=== PATIENT | female | born 1950 | race Caucasian/White ===

== ENCOUNTER 2016-10-25 20:26 | Emergency (ER) | payer MEDICARE, OTHER ==
[2016-10-25] MEDS ORDERED: FENTANYL CITRATE INJ/PF 100 MCG/2 ML AMPUL IV ONE (21:07)
[2016-10-25] MEDS ORDERED: KETOROLAC TROMETHAMINE INJ/PF 30 MG/1 ML SDV IV ONE (21:07)
--- NOTE | 2016-10-25 21:10 | ER Document Report ---
ED General - General Chief Complaint: Fall Injury Stated Complaint: FALL/RIB PAIN Time Seen by Provider: 10/25/16 20:39 Notes: Patient is a 66 year old female with a past medical history who presents after she had a mechanical slip and fall in her bathroom just prior to arrival. Patient states that she slipped over a pool of water striking her left lower ribs on a bathtub. She did not hit her head or neck. However states that since hitting her ribs she has had a constant, severe, throbbing pain to the lower left-sided ribs. Nothing improves her pain. States any movement or coughing worsens the pain. No history of similar injury in the past. She denies any injury or concerns beyond the left rib discomfort. No pain, gross hematuria, chest pain or shortness of breath. She has not seen her primary doctor regarding today's concerns. Past Medical History - General Information source: Patient - Social History Smoking Status: Never Smoker Frequency of alcohol use: None Drug Abuse: None Lives with: Spouse/Significant other Family History: Reviewed & Not Pertinent Review of Systems - Review of Systems Notes: Constitutional: Negative for fever. Eyes: Negative for visual changes. ENT: Negative for facial injury Cardiovascular: Negative for chest injury. Respiratory: Negative for shortness of breath. Gastrointestinal: Negative for abdominal injury. Genitourinary: Negative for genital injury Musculoskeletal: Positive for left rib injury Skin: Negative for laceration/abrasions. Neurological: Negative for head injury. Physical Exam - Vital signs Vitals: Temp Pulse Resp BP Pulse Ox 98.2 F 73 20 139/72 H 95 10/25/16 23:25 10/25/16 23:25 10/25/16 23:25 10/25/16 23:25 10/25/16 23:25 Interpretation: Normal Notes: PHYSICAL EXAMINATION: GENERAL: Well-appearing, no acute distress. HEAD: Atraumatic, normocephalic. EYES: Pupils equal round and reactive to light, extraocular movements intact, sclera anicteric, conjunctiva are normal. ENT: nares patent, no oral pharyngeal trauma. No hemotympanum, no Vegas's sign , no raccoon eyes. NECK: No midline cervical spine tenderness. Patient able to move their head to 45 bilaterally without any discomfort. LUNGS: Breath sounds clear to auscultation bilaterally and equal. No wheezes rales or rhonchi. HEART: Regular rate and rhythm without murmurs. CHEST WALL: Ecchymosis over the left lower ribs. ABDOMEN: Soft, nontender, normoactive bowel sounds. No guarding, no rebound. No seatbelt sign. EXTREMITIES: Normal range of motion, no pitting or edema. No long bone deformities. BACK: No midline spinal tenderness, step-offs, or deformities. NEUROLOGICAL: Face symmetric. Tongue protrudes midline. Extraocular motions intact. Pupils are 2 mm and equally reactive. Normal speech, normal gait. 5 out of 5 strength in both the distal and proximal upper and lower extremities bilaterally. Sensation is grossly intact throughout. Finger to nose testing normal. Pronator drift normal. PSYCH: Normal mood, normal affect. SKIN: Warm, Dry, normal turgor, no rashes or lesions noted. Course - Re-evaluation Re-evalutation: 10/25/16 21:08 Presentation of a well patient in no acute distress, vitals within normal limits after a fall onto her left ribs. No focal neurologic deficits on exam, no evidence of basilar skull fracture on exam without evidence of hemotympanum, raccoon eyes, or periauricular hematoma. No papilledema. Patient is not on anticoagulation. GCS is 15. No loss of consciousness. No episodes of vomiting. She does not think she hit her head and has no evidence of head trauma. Patient also evaluated by nexus criteria and found to be negative. No clinical evidence to suggest increased risk of cervical spine fracture. No indication for further imaging of the cervical spine. Patient has no focal deformities or limited range of motion in any joint space to indicate need for extremity imaging. Does have focal bruising over the left lower ribs and I suspect that she likely has either bruised intercostal rib muscles or she has sustained rib fractures. She is not hypoventilating and is otherwise well in appearance without any additional injury. I will obtain an x-ray, provide pain control, I do not believe any labs are indicated. Patient is clear that today she did not syncopized or have lightheadedness prior to the fall and that she slipped on an area of water on the floor and struck her ribs on the bathtub. 10/25/16 23:07 X-ray demonstrates left seventh and eighth rib fractures with a small associated pleural effusion without evidence of pneumothorax. Patient remains with vitals within normal limits, able to take clear deep breath. She has no focal abdominal tenderness, and has urinated here in the emergency department without gross hematuria to indicate a need for CT imaging. At this time will discharge with return precautions and follow-up recommendations. Verbal discharge instructions given a the bedside and opportunity for questions given. Medication warnings reviewed. Patient is in agreement with this plan and has verbalized understanding of return precautions and the need for primary care follow-up in the next 24-72 hours. - Vital Signs Vital signs: Temp Pulse Resp BP Pulse Ox 98.2 F 73 20 139/72 H 95 10/25/16 23:25 10/25/16 23:25 10/25/16 23:25 10/25/16 23:25 10/25/16 23:25 - Diagnostic Test Radiology reviewed: Image reviewed, Reports reviewed Radiology results interpreted by me: 10/26/16 03:32 Chest x-ray: Left eighth rib fracture Discharge - Discharge Clinical Impression: Fracture of rib of left side Qualifiers: Encounter type: initial encounter Rib fracture type: multiple ribs Fracture type: closed Qualified Code(s): S22.42XA - Multiple fractures of ribs, left side , initial encounter for closed fracture Condition: Good Disposition: HOME, SELF-CARE Additional Instructions: Your chest wall pain is due to a fracture of two of your ribs. This pain can last for up to 6 weeks. It is very important that you continue to take purposeful deep breaths. For your pain: Take ibuprofen 600 mg and acetaminophen 1000 mg every 6 hours together as needed for pain. If this does not control your pain you may take 15 mg of oral morphine every 4 hours as needed. There is a product sold over-the -counter called "Aspercreme with lidocaine" that you can also apply topically to the painful area. Please be very careful about using the oral morphine and only use this for severe pain. Please follow-up with your primary care doctor in the next 2-3 days. Return to the emergency department immediately if you develop worsening shortness of breath, increased pain, begin coughing blood, pass out, or have any other symptoms that are worrisome to you. Prescriptions: Morphine Sulfate [Morphine Ir 15 mg Tablet] 15 mg PO Q4HP PRN #12 tablet PRN Reason:
[2016-10-25] MEDS ORDERED: LIDOCAINE 5% (700 MG) TRANSDERMAL ADH..PATCH TP SCH (21:15)
--- NOTE | 2016-10-25 22:45 | RADIOLOGY REPORT (SQ) ---
EXAM DESCRIPTION: CHEST PA/LAT COMPLETED DATE/TIME: 10/25/2016 10:36 pm REASON FOR STUDY: fall, left rib pain COMPARISON: None. EXAM PARAMETERS: NUMBER OF VIEWS: two views TECHNIQUE: Digital Frontal and Lateral radiographic views of the chest acquired. RADIATION DOSE: NA LIMITATIONS: none FINDINGS: LUNGS AND PLEURA: There is pleural thickening in the left base possibly small left effusio n. MEDIASTINUM AND HILAR STRUCTURES: No masses or contour abnormalities. HEART AND VASCULAR STRUCTURES: Heart normal size. No evidence for failure. BONES: Probable fractures of the 8th and 9th lateral left ribs. HARDWARE: None in the chest. OTHER: No other significant finding. IMPRESSION: Small left effusion and/or pleural thickening. Probable fractures of the 8th and 9th le ft lateral ribs. TECHNICAL DOCUMENTATION: JOB ID: [id number] [employer]- All Rights Reserved
[2016-10-25] MEDS ORDERED: HYDROCODONE/ACETAMINOPHEN 5-325 MG 6 TAB/DSPK PO PRN (23:07)
[2016-10-25 23:40] VITALS: BP 139/72
== END 2016-10-25 23:36 | disposition home or self-care (01) ==
LOC: ER 20:26
DX: S22.42XA Multiple fractures of ribs, left side, initial encounter for closed fracture (principal); R07.81 Pleurodynia; W01.198A Fall on same level from slipping, tripping and stumbling with subsequent striking against other object, initial encounter; Y92.002 Bathroom of unspecified non-institutional (private) residence as the place of occurrence of the external cause
CPT/HCPCS: 99284; 96374; 96375; 71020; J3010; J1885; A9270